=== PATIENT | male | born 1960 | race Caucasian/White ===

== ENCOUNTER 2022-09-26 10:43 | Day surgery (SDC) | payer BC ==
[2022-09-26] MEDS ORDERED: LIDOCAINE HCL 2% 100 MG/5 ML IJ ONE (10:44)
[2022-09-26] MEDS ORDERED: Versed 2 MG/2 ML Injection ONE (12:46)
[2022-09-26] MEDS ORDERED: DIPRIVAN 200 MG/20 ML IV ONE (13:16)
--- NOTE | 2022-09-26 14:52 | XRAY ---
Indication: Bilateral L4-S1 MBB. Interoperative fluoroscopy provided for 18 seconds. Single digital spot image submitted for interpretation demonstrates posterior needle tips projecting over the expected left and right L4-S1 nerve roots. Correlate with intraoperative findings/report.
--- NOTE | 2022-09-26 14:56 | XRAY ---
18 seconds of fluoroscopy was used in surgery for a bilateral L4-S1 MBB.
[2022-09-26] MEDS ORDERED: Lactated Ringers 1,000 ML IV ONE (15:05)
== END 2022-09-26 13:50 | disposition home or self-care (01) ==
LOC: SDC-PAIN 10:43
PROVIDERS: ATTEND Psychiatry & Neurology Pain Medicine
DX: M47.816 Spondylosis without myelopathy or radiculopathy, lumbar region (principal); Z79.899 Other long term (current) drug therapy
CPT/HCPCS: 64493; 64494; 72020; 77002; J2250; J2704

== ENCOUNTER 2022-10-24 10:30 | Day surgery (SDC) | payer BC ==
[2022-10-24] MEDS ORDERED: BUPIVACAINE 0.5% VIAL IJ ONE (10:31)
[2022-10-24] MEDS ORDERED: Depo-Medrol 40 MG/ML IM ONE (10:31)
[2022-10-24] MEDS ORDERED: DIPRIVAN 200 MG/20 ML IV ONE (11:34)
[2022-10-24] MEDS ORDERED: Lactated Ringers 1,000 ML IV ONE (11:57)
--- NOTE | 2022-10-24 18:17 | XRAY ---
Indication: Bilateral SI joint injection. Intraoperative fluoroscopy provided for 16 seconds. 5 digital spot image submitted for interpretation demonstrates posterior needle tip projecting over the left and right SI joint. Correlate with intraoperative findings/report.
--- NOTE | 2022-10-24 19:01 | XRAY ---
16 seconds of fluoroscopy was used in surgery for bilateral SI joint injections.
== END 2022-10-24 12:55 | disposition home or self-care (01) ==
LOC: SDC-PAIN 10:30
PROVIDERS: ATTEND Psychiatry & Neurology Pain Medicine
DX: M46.1 Sacroiliitis, not elsewhere classified (principal); Z79.899 Other long term (current) drug therapy
CPT/HCPCS: 27096; 72202; 77002; J1030; J2704; G0260

== ENCOUNTER 2022-11-28 12:51 | Day surgery (SDC) | payer BC ==
[2022-11-28] MEDS ORDERED: BUPIVACAINE 0.5% VIAL IJ ONE (12:52)
[2022-11-28] MEDS ORDERED: Versed 2 MG/2 ML Injection ONE (13:52)
[2022-11-28] MEDS ORDERED: DIPRIVAN 200 MG/20 ML IV ONE ×2 (14:16→14:27)
[2022-11-28] MEDS ORDERED: Lactated Ringers 1,000 ML IV ONE (15:08)
--- NOTE | 2022-11-28 19:08 | XRAY ---
Indication: Bilateral L4-S1 MBB. Intraoperative fluoroscopy provided for 7 seconds. Single digital spot image submitted for interpretation demonstrates posterior needle tips projecting over the expected left and right L4-S1 nerve roots. Correlate with intraoperative findings/report.
--- NOTE | 2022-11-28 19:26 | XRAY ---
7 seconds of fluoroscopy was used in surgery for a bilateral L4-S1 MBB.
== END 2022-11-28 14:46 | disposition home or self-care (01) ==
LOC: SDC-PAIN 12:51
PROVIDERS: ATTEND Psychiatry & Neurology Pain Medicine
DX: M47.816 Spondylosis without myelopathy or radiculopathy, lumbar region (principal); Z79.899 Other long term (current) drug therapy
CPT/HCPCS: 64493; 64494; 72020; 77002; J2250; J2704

== ENCOUNTER 2023-01-09 09:12 | Day surgery (SDC) | payer BC ==
[2023-01-09] MEDS ORDERED: LIDOCAINE HCL 1% 50 MG/5 ML VL PF IJ ONE (09:13)
[2023-01-09] MEDS ORDERED: Depo-Medrol 40 MG/ML IM ONE (09:13)
[2023-01-09] MEDS ORDERED: BUPIVACAINE 0.5% VIAL IJ ONE (09:13)
[2023-01-09] MEDS ORDERED: Versed 2 MG/2 ML Injection ONE (09:37)
[2023-01-09] MEDS ORDERED: DIPRIVAN 200 MG/20 ML IV ONE (10:26)
--- NOTE | 2023-01-09 13:21 | XRAY ---
Indication: Left L4-S1 RFA. Intraoperative fluoroscopy provided for 2 seconds. 3 digital spot image submitted for interpretation demonstrates posterior needle tips projecting over the left L4-S1 nerve roots. Correlate with intraoperative findings/report.
--- NOTE | 2023-01-09 13:23 | XRAY ---
22 seconds of fluoroscopy was used in surgery for a left L4-S1 RFA.
[2023-01-09] MEDS ORDERED: Lactated Ringers 1,000 ML IV ONE (13:35)
== END 2023-01-09 11:03 | disposition home or self-care (01) ==
LOC: SDC-PAIN 09:12
PROVIDERS: ATTEND Psychiatry & Neurology Pain Medicine
DX: M47.816 Spondylosis without myelopathy or radiculopathy, lumbar region (principal); Z79.899 Other long term (current) drug therapy
CPT/HCPCS: 64635; 64636; 72100; 77002; J1030; J2001; J2250; J2704

== ENCOUNTER 2023-01-16 10:43 | Day surgery (SDC) | payer BC ==
[2023-01-16] MEDS ORDERED: BUPIVACAINE 0.5% VIAL IJ ONE (10:44)
[2023-01-16] MEDS ORDERED: LIDOCAINE HCL 1% 50 MG/5 ML VL PF IJ ONE (10:44)
[2023-01-16] MEDS ORDERED: Depo-Medrol 40 MG/ML IM ONE (10:44)
[2023-01-16] MEDS ORDERED: Versed 2 MG/2 ML Injection ONE (12:09)
[2023-01-16] MEDS ORDERED: DIPRIVAN 200 MG/20 ML IV ONE ×2 (12:58→13:04)
--- NOTE | 2023-01-16 14:04 | XRAY ---
Indication: Right L4-S1 RFA. Intraoperative fluoroscopy provided for 20 seconds. 4 digital spot image submitted for interpretation demonstrates posterior needle tips projecting over the expected right L4-S1 nerve roots. Correlate with intraoperative findings/report.
--- NOTE | 2023-01-16 14:07 | XRAY ---
20 seconds of fluoroscopy was used in surgery for a right L4-S1 RFA.
[2023-01-16] MEDS ORDERED: Lactated Ringers 1,000 ML IV ONE (15:23)
== END 2023-01-16 13:30 | disposition home or self-care (01) ==
LOC: SDC-PAIN 10:43
PROVIDERS: ATTEND Psychiatry & Neurology Pain Medicine
DX: M47.816 Spondylosis without myelopathy or radiculopathy, lumbar region (principal); Z79.899 Other long term (current) drug therapy
CPT/HCPCS: 64635; 64636; 72100; 77002; J1030; J2001; J2250; J2704

== ENCOUNTER 2025-03-24 08:56 | Day surgery (SDC) | payer SELFPAY ==
[2025-03-24] MEDS ORDERED: BUPIVACAINE 0.5% VIAL IJ ONE (08:57)
[2025-03-24] MEDS ORDERED: methylPREDNISolone acetate IM ONE (08:57)
[2025-03-24] MEDS ORDERED: LIDOCAINE HCL 1% 50 MG/5 ML VL IJ ONE (08:57)
[2025-03-24] MEDS ORDERED: Versed 2 MG/2 ML Injection ONE (09:47)
[2025-03-24] MEDS ORDERED: propofoL IV ONE ×2 (10:38→10:48)
--- NOTE | 2025-03-24 13:03 | XRAY ---
Indication: Bilateral L4-S1 RFA. Intraoperative fluoroscopy provided for 43 seconds. 7 digital spot image submitted for interpretation demonstrates posterior needle tips projecting over expected left and right L4-S1 nerve roots. Correlate with intraoperative findings/report.
--- NOTE | 2025-03-24 13:07 | XRAY ---
43 seconds of fluoroscopy were used in surgery for a bilateral L4-S1 RFA.
[2025-03-24] MEDS ORDERED: Lactated Ringers 1,000 ML IV ONE (15:16)
== END 2025-03-24 11:20 | disposition home or self-care (01) ==
LOC: SDC-PAIN 08:56
PROVIDERS: ATTEND Psychiatry & Neurology Pain Medicine
DX: M47.817 Spondylosis without myelopathy or radiculopathy, lumbosacral region (principal)